=== PATIENT | male | born 2000 | race African-American/Black ===

== ENCOUNTER 2024-11-06 17:55 | Emergency (ER) | payer OTHER, SELFPAY ==
[2024-11-06 18:02] VITALS: BP 140/77; PULSE 71; RESP 16; TEMP 36.3; O2SAT 97; BMI 23.6
--- NOTE | 2024-11-06 18:03 | ED_ITS ---
HPI - General Adult General Chief complaint: Extremity Injury, Upper Stated complaint: pain in left elbow Time Seen by Provider: 11/06/24 19:38 Source: patient Limitations: no limitations History of Present Illness ED Provider: Pippa Hatch PA-C HPI narrative: 24-year-old male presents with left forearm pain and redness x1 week. Patient states he has gradually developed an area of redness and minimal swelling along medial forearm. Patient able to flex and extend the elbow, denies fever. Denies breach in the skin barrier, puncture wound, scratch etc.. Related Data Previous Rx's ?Medication ?Instructions ?Recorded cephalexin 500 mg capsule 500 mg PO QID #27 caps 11/06 Allergies Allergy/AdvReac Type Severity Reaction Status Date / Time No Known Allergies Allergy Verified 11/06/24 18:04 Review of Systems 2 Review of Systems: Yes all other systems are reviewed and are negative Constitutional: Constitutional: Denies fatigue and Denies fever(s) Musculoskeletal: Musculoskeletal: Denies arthralgias and Denies joint swelling Integumentary/Breasts: Skin/Breast: Reports erythema Endocrine: Endocrine: Denies fatigue PMFSH Past Medical History Attestation statement: The following information was validated with the patient. Social History Social History Advance Directives: No Advance Directives Information Provided: No Do you have a plan to hurt others: No Plan Physical Exam ED Vital Signs: Vital Signs - 24 hr 11/06/24 18:02 Temperature 97.4 F Pulse Rate 71 Respiratory Rate 16 Blood Pressure 140/77 H Pulse Oximetry 97 Oxygen Delivery Method Room Air BMI result Body Mass Index 23.6 Const Other: Alert well-appearing Orientation/consciousness: patient oriented x3 Resp Effort & Inspection: normal respiratory effort Cardio Other: Normal peripheral perfusion Skin Other: Warm dry no rash Neuro General: patient oriented x3, gait normal, no focal motor deficits and CN's II- XI intact bilaterally Extrem Other: Warmth and erythema noted medial left forearm, does not encompass the elbow joint, patient able to fully flex and extend from the elbow there was no swelling of the joint itself Psych Other: Cooperative Course Course Course Narrative: This is a rapid medical exam performed by Allan Padilla NP: Additional HPI, ROS, PE not included below will be deferred to primary provider. Patient is a 24-year-old right hand dominant male presenting to the ED with one week of worsening left elbow pain. Full ROM but erythema and warmth to proximal forearm. Sent from urgent care for further eval. Plan: labs Medical Decision Making Medical Decision Making [facility] Narrative: 24-year-old male presents with left forearm pain and redness x1 week. Patient states he has gradually developed an area of redness and minimal swelling along medial forearm. Patient able to flex and extend the elbow, denies fever. Denies breach in the skin barrier, puncture wound, scratch etc.. No chronic issues History: Per patient I have considered the following differential diagnoses: Septic joint, gout, cellulitis, purulent cellulitis, tendonitis Plan: The patient has elbows not involved, there were no exam findings consistent with a septic joint or gout, he has a patch of cellulitis. We will treat accordingly. No indication for imaging. I have independently reviewed the following tests: Labs: No leukocytosis, not anemic, no electrolyte abnormality noted Lab Data 11/06/24 18:17 11/06/24 18:17 Labs: Lab Results 11/06/24 Range/Units 18:17 WBC 6.1 (4.8-10.8) X10*3/uL RBC 4.71 (4.60-5.80) X10*6/uL Hgb 14.5 (14.0-18.0) g/dl Hct 41.9 L (42.0-52.0) % MCV 89.0 (80.0-98.0) fL MCH 30.8 (27.0-33.0) pg MCHC 34.6 (31.0-36.0) g/dl RDW 11.5 (11.0-16.0) % Plt Count 179 (160-400) X10*3/uL MPV 9.8 (9.4-12.4) fL Immature Gran % (Auto) 0.3 (0.0-0.4) % Neut % (Auto) 41.0 L (45-73) % Lymph % (Auto) 48.9 H (20-40) % Mason % (Auto) 8.3 (2-11) % Eos % (Auto) 1.0 (0-4) % Baso % (Auto) 0.5 (0-2) % Lymph # (Auto) 3.0 (1.2-4.9) X10*3/uL Mason # (Auto) 0.5 (0.1-1.2) X10*3/uL Eos # (Auto) 0.1 (0.0-0.4) X10*3/uL Baso # (Auto) 0.0 (0.0-0.2) X10*3/uL Abs Immat Gran (auto) 0.02 (0.00-0.03) X10*3/uL Absolute Neuts (auto) 2.5 (2.0-8.3) x10*3/uL Absolute Nucleated RBC 0.000 (0.0-0.012) X10*3/uL Nucleated RBC % (auto) 0.0 (0.0-0.2) /100WBC ESR 1 (0-15) MM/HR Sodium 145 (135-145) mmol/L Potassium 4.1 (3.3-5.1) mmol/L Chloride 108 (96-108) mmol/L Carbon Dioxide 29 (22-29) mmol/L Anion Gap 12 (12-20) BUN 15 (9-16) mg/dL Creatinine 1.18 (0.5-1.4) mg/dL Estim Creat Clear Calc 92.5 Estimated GFR > 60 Random Glucose 67 (60-115) mg/dL Calcium 9.4 (8.4-10.2) mg/dL Total Bilirubin 2.1 H (0.0-1.0) mg/dL AST 50 H (5-37) U/L ALT 41 H (0-40) U/L Alkaline Phosphatase 43 (39-117) U/L C-Reactive Protein < 0.04 (< or = 0.50) mg/dL Total Protein 7.0 (6.5-8.0) g/dL Albumin 4.7 (3.5-5.0) g/dL Discharge Plan Discharge Clinical Impression: Cellulitis of forearm, left Patient Disposition: Home, Self-Care Instructions: Cellulitis (ED) Additional Instructions: You are being treated for cellulitis. See home care instructions. Take the cephalexin as directed. To note you had no lab abnormalities. Follow up with your primary care provider as needed. Prescriptions: New cephalexin 500 mg capsule 500 mg PO QID Qty: 27 0RF Stand Alone Forms: Work/School Release Print Language: Armenian
[2024-11-06 18:21] LABS: MANUAL DIFF FLAG NO
[2024-11-06 18:22] LABS: Hematocrit 41.9 % (42.0-52.0); Hemoglobin 14.5 g/dl (14.0-18.0); Imm Gran Abs Auto 0.02 X10*3/uL (0.00-0.03); Imm Gran Pct Auto 0.3 % (0.0-0.4); Lymphocytes Absolute Auto 3.0 X10*3/uL (1.2-4.9); Mean Corpuscular HGB Conc 34.6 g/dl (31.0-36.0); Mean Corpuscular Hemoglobin 30.8 pg (27.0-33.0); Mean Corpuscular Volume 89.0 fL (80.0-98.0); NRBC Abs Auto 0.000 X10*3/uL (0.0-0.012); NRBC Pct Auto 0.0 /100WBC (0.0-0.2); Platelet Count 179 X10*3/uL (160-400); Red Blood Count 4.71 X10*6/uL (4.60-5.80); White Blood Count 6.1 X10*3/uL (4.8-10.8)
[2024-11-06 18:37] LABS: Alanine Aminotransferase 41 U/L (0-40); Albumin Level 4.7 g/dL (3.5-5.0); Alkaline Phosphatase 43 U/L (39-117); Anion Gap 12 (12-20); Aspartate Amino Transferase 50 U/L (5-37); Blood Urea Nitrogen 15 mg/dL (9-16); Calcium 9.4 mg/dL (8.4-10.2); Carbon Dioxide 29 mmol/L (22-29); Chloride 108 mmol/L (96-108); Creatinine Clr Calc Pharmacy 92.5; Estimated Glomerular Filt Rate > 60; Potassium 4.1 mmol/L (3.3-5.1); Sodium 145 mmol/L (135-145); Total Protein 7.0 g/dL (6.5-8.0)
[2024-11-06 20:23] VITALS: BP 142/75; PULSE 72; RESP 18; TEMP 36.4; O2SAT 97
[2024-11-06 20:44] VITALS: BP 142/75; PULSE 72; RESP 18; TEMP 36.4; O2SAT 97
== END 2024-11-06 20:44 | disposition home or self-care (01) ==
PROVIDERS: Registered Nurse Emergency; Emergency Provider Emergency Medicine; PCP Student in an Organized Health Care Education/Training Program
DX: L03.114 Cellulitis of left upper limb (principal)
CPT/HCPCS: 36415; 80053; 85025; 85652; 86140; 99282; 99283